=== PATIENT | female | born 1955 | race Caucasian/White ===

== ENCOUNTER 2017-10-22 19:08 | Emergency (ER) | payer BC ==
[~2017-10-22] VITALS: Ht 160 cm; Wt 73.0 kg
[~2017-10-22 19:08] MED LIST: IBUPROFEN
[2017-10-22] MEDS ORDERED: KETOROLAC 60MG/2ML VIAL IM ONE (20:00)
[2017-10-22] MEDS ORDERED: CYCLOBENZAPRINE 10MG TABLET PO ONE (20:00)
[2017-10-22 20:07] VITALS: BP 91/64
== END 2017-10-22 21:49 | disposition home or self-care (01) ==
LOC: ER 19:08
DX: M54.5 Low back pain (principal); M54.30 Sciatica, unspecified side; Z98.1 Arthrodesis status; Z88.5 Allergy status to narcotic agent
CPT/HCPCS: 96372; 99283; J1885